=== PATIENT | female | born 1995 | race Caucasian/White ===

== ENCOUNTER 2017-05-31 00:33 | Emergency (ER) | payer OTHER, SELFPAY ==
[2017-05-31 01:21] LABS: Bilirubin Negative (Negative); Blood, Urine Large (Negative); Glucose, Urine (Dipstick) Negative (Negative); Ketone, Urine Negative (Negative); Nitrite Negative (Negative); Protein, Urine (Dipstick) Negative (Neg-Trace); Urobilinogen 0.2 mg/dL (0.2-1.0)
[2017-05-31 01:23] LABS: Bacteria/HPF Rare-Few HPF (None Seen); Hyaline Casts/LPF 0-3 HYALINE CAST LPF (0-3 Hyaline); WBC/HPF 0-3 HPF (0-3)
== END 2017-05-31 02:40 | disposition home or self-care (01) ==
LOC: ERS 00:33
DX: O20.0 Threatened abortion (principal); Z3A.15 15 weeks gestation of pregnancy; F41.9 Anxiety disorder, unspecified; F32.9 Major depressive disorder, single episode, unspecified
CPT/HCPCS: 36415; 81003; 81015; 84702; 99284

== ENCOUNTER 2017-12-04 17:04 | Emergency (ER) | payer OTHER ==
[2017-12-04 18:32] LABS: #Basophils 0.1 thou/uL (0.0-0.2); #Eosinphils 0.2 thou/uL (0.0-0.7); #Lymphocytes 2.8 thou/uL (1.20-3.40); #Monocytes 0.4 thou/uL (0.11-0.59); #Neutrophils 4.2 thou/uL (1.40-6.50); %Basophils 0.7 % (0.0-1.0); %Lymphocytes 36.4 % (21.0-51.0); %Monocytes 5.9 % (0.0-10.0); Mean Corpuscular HGB CONC 33.5 g/dL (32.0-36.0); Mean Corpuscular Hemoglobin 28.2 pg (27.0-31.0); Mean Platelet Volume 6.7 fL (7.4-10.4); Platelet Count 400 thou/uL (130-400); RBC Distribution Width 12.9 % (11.5-14.5); Red Blood Cell (RBC) Count 4.61 mill/uL (4.20-5.40); White Blood Cell (WBC) Count 7.6 thou/uL (4.8-10.8)
[2017-12-04 18:45] LABS: Bilirubin Negative (Negative); Blood, Urine Moderate (Negative); Clarity CLEAR (Clear); Glucose, Urine (Dipstick) Negative (Negative); Leukocyte Negative (Negative); Nitrite Negative (Negative); Protein, Urine (Dipstick) Negative (Neg-Trace); Specific Gravity, Urine 1.012 (1.002-1.036); Urobilinogen 0.2 mg/dL (0.2-1.0)
[2017-12-04 18:47] LABS: Bacteria/HPF None Seen HPF (None Seen); Hyaline Casts/LPF 0-3 HYALINE CAST LPF (0-3 Hyaline); RBC/HPF None Seen HPF (0-3); Squamous Epithelial 0-3 HPF (0-3); WBC/HPF 0-3 HPF (0-3)
[2017-12-04 18:50] LABS: Anion Gap 12 mmol/L (10-20); BUN (Urea Nitrogen) 12 mg/dL (7.0-18.7); Calc. Creatinine Clearance 0 mL/min (70-130); Calcium 9.3 mg/dL (7.8-10.44); Carbon Dioxide 23 mmol/L (22-29); Chloride 106 mmol/L (98-107); Estimated GFR-MDRD Greater than 90; Glucose 81 mg/dL (70-105); Potassium 4.2 mmol/L (3.5-5.1); Sodium 137 mmol/L (136-145)
[2017-12-04] MEDS ORDERED: Acetaminophen 500 MG TAB ONE (19:12)
--- NOTE | 2017-12-04 21:42 | ULT ---
PELVIC ULTRASOUND: 12/04/17 HISTORY: bleeding. Real time images of the pelvis were obtained transabdominally. These show a uterus measuring 6.1 x 8. 8 x 12.2 cm. Endometrium is thickened at 1.3 cm. It is of decreased echogenicity which would indicate some blood. I do not see any definite retained products of conception. The left ovary is felt to be visualized and normal in appearance. The right ovary is not seen. DOPPLER EVALUATION WITH SPECTRAL ANALYSIS: Normal flow is shown to the left ovary. IMPRESSION: 1. Enlarged uterus consistent with state with a thickened endometrium which would sug gest some blood products as it is of decreased echogenicity. 2. The right ovary is not identified. The left ovary appears unremarkable. POS: MARTINEZ
== END 2017-12-04 20:06 | disposition home or self-care (01) ==
LOC: ERS 17:04
DX: O72.2 Delayed and secondary postpartum hemorrhage (principal); F41.9 Anxiety disorder, unspecified; F32.9 Major depressive disorder, single episode, unspecified; Z79.899 Other long term (current) drug therapy
CPT/HCPCS: 36415; 51701; 76856; 80048; 81003; 81015; 85025; 93976; A4353

== ENCOUNTER 2019-10-03 15:04 | Emergency (ER) | payer OTHER ==
[2019-10-03 15:38] LABS: #Basophils 0.1 thou/uL (0.0-0.2); #Eosinphils 0.1 thou/uL (0.0-0.7); #Lymphocytes 1.8 thou/uL (1.20-3.40); #Monocytes 0.8 thou/uL (0.11-0.59); #Neutrophils 11.3 thou/uL (1.40-6.50); %Basophils 0.4 % (0.0-1.0); %Eosinophils 0.5 % (0.0-10.0); %Lymphocytes 12.8 % (21.0-51.0); %Monocytes 5.4 % (0.0-10.0); %Neutrophils 80.9 % (42.0-75.0); Hemoglobin 12.8 g/dL (12.0-16.0); Mean Corpuscular HGB CONC 34.3 g/dL (32.0-36.0); Mean Corpuscular Volume 84.5 fL (78.0-98.0); Platelet Count 405 thou/uL (130-400); RBC Distribution Width 12.1 % (11.5-14.5); Red Blood Cell (RBC) Count 4.42 mill/uL (4.20-5.40); White Blood Cell (WBC) Count 13.9 thou/uL (4.8-10.8)
[2019-10-03 15:59] LABS: ALT (SGPT) 11 U/L (8-55); AST (SGOT) 13 U/L (5-34); Albumin 4.7 g/dL (3.5-5.0); Alkaline Phosphatase 92 U/L (40-110); Anion Gap 12 mmol/L (10-20); BUN (Urea Nitrogen) 6 mg/dL (7.0-18.7); Bilirubin, Total 0.4 mg/dL (0.2-1.2); Calc. Creatinine Clearance 0 mL/min (70-130); Calcium 9.5 mg/dL (7.8-10.44); Carbon Dioxide 25 mmol/L (22-29); Chloride 103 mmol/L (98-107); Estimated GFR-MDRD Greater than 90; Globulin 3.7 g/dL (2.4-3.5); Glucose 97 mg/dL (70-105); Lipase 10 U/L (8-78); Potassium 4.1 mmol/L (3.5-5.1); Protein, Total 8.4 g/dL (6.0-8.3); Sodium 136 mmol/L (136-145)
[2019-10-03 16:00] LABS: Bilirubin Negative (Negative); Blood, Urine Negative (Negative); Clarity Clear (Clear); Glucose, Urine (Dipstick) Normal (Negative); Leukocyte Negative Leu/uL (Negative); Nitrite Negative (Negative); Protein, Urine (Dipstick) Negative (Neg-Trace); Urobilinogen Normal mg/dL (Less than 2)
[2019-10-03 16:04] LABS: Pregnancy Test - Urine (BHCG) Negative (Negative); Pregu Control Background? CLEAR/WHITE (CLR/WHITE); Pregu Control Bar Appear? YES (CONTROL BAR); Specific Gravity 1.023 (1.002-1.036)
[2019-10-03] MEDS ORDERED: Ketorolac Tromethamine 30 MG/ML VIAL ONE (16:35)
[2019-10-03] MEDS ORDERED: Ondansetron ODT 4 MG TAB ONE (16:36)
--- NOTE | 2019-10-03 17:51 | ULT ---
TRANSABDOMINAL TRANSVAGINAL PELVIC ULTRASOUND DATE:: 10/03/2019 4:20 PM CLINICAL HISTORY: Lower abdominal pain with history of negative . COMPARISON: Pelvic ultrasound dated December 04, 2017 TECHNIQUE: Grayscale, color Doppler and spectral Doppler images were obtained of the pelvis see a tra nsabdominal and transvaginal approach FINDINGS: UTERUS: Size: 7.7 x 5.6 x 3.7 cm Mass: None Cervix: Within normal limits Endometrial Thickness: 13 mm. OVARIES: Size: Right measures 1.9 x 2.4 x 3.9 cm; Left measures 2.4 x 1.3 x 2.7 cm Mass: There are bilateral ovarian cysts. The largest on the right ovary measures 1.3 cm. The largest in the left ovary measures 7 mm. Flow: Normal CUL-DE-SAC: Moderate free fluid IMPRESSION: 1. Nonspecific moderate free fluid. 2. Bilateral ovarian follicular cysts.
== END 2019-10-03 18:35 | disposition home or self-care (01) ==
LOC: ERS 15:04
DX: N83.02 Follicular cyst of left ovary (principal); N83.01 Follicular cyst of right ovary; F41.9 Anxiety disorder, unspecified; F32.9 Major depressive disorder, single episode, unspecified
CPT/HCPCS: 36415; 76856; 80053; 81003; 81025; 83690; 85025; 87081; 87430; 96372; J1885; Q0162

== ENCOUNTER 2023-06-11 13:16 | Emergency (ER) | payer OTHER, SELFPAY | END 2023-06-11 13:50 | disposition home or self-care (01) | LOC: ERS 13:16 | DX: L25.9 Unspecified contact dermatitis, unspecified cause (principal) | CPT/HCPCS: 99282 ==

== ENCOUNTER 2025-05-17 18:40 | Emergency (ER) | payer SELFPAY ==
[2025-05-17 19:24] LABS: Pregnancy Test - Urine (BHCG) Negative (Negative); Pregu Control Background? CLEAR/WHITE (CLR/WHITE); Pregu Control Bar Appear? YES (CONTROL BAR)
[2025-05-17 19:30] LABS: CAUTI Indications for Culture Dysuria,urgency,freq; Glucose, Urine (Dipstick) Normal (Negative); Leukocyte 250 Leu/uL (Negative); Protein, Urine (Dipstick) 30 mg/dL (Neg-Trace); Specific Gravity, Urine 1.038 (1.002-1.036); WBC/HPF Greater than 50 HPF (0-3)
[2025-05-17 19:31] LABS: Bacteria/HPF 1+ HPF (None Seen)
[2025-05-17 19:33] LABS: Urine Culture Reflex Yes Yes
[2025-05-17] MEDS ORDERED: cefTRIAXone (ROCEPHIN) 1 GM VIAL ONE ×2 (20:02→20:09)
== END 2025-05-17 20:27 | disposition home or self-care (01) ==
LOC: ERS 18:40
DX: N39.0 Urinary tract infection, site not specified (principal)
CPT/HCPCS: 81001; 81025; 87077; 87086; 96372; 99284; J0696; Q0162

== ENCOUNTER 2025-07-14 15:02 | Emergency (ER) | payer SELFPAY ==
[2025-07-14 15:54] LABS: Bacteria/HPF None Seen HPF (None Seen); CAUTI Indications for Culture Dysuria,urgency,freq; Glucose, Urine (Dipstick) Normal (Negative); Leukocyte Negative Leu/uL (Negative); Pregnancy Test - Urine (BHCG) Negative (Negative); Pregu Control Background? CLEAR/WHITE (CLR/WHITE); Pregu Control Bar Appear? YES (CONTROL BAR); Protein, Urine (Dipstick) Negative (Neg-Trace); RBC/HPF None Seen HPF (0-3); Specific Gravity, Urine 1.023 (1.002-1.036); Urine Culture Reflex No No; WBC/HPF None Seen HPF (0-3)
== END 2025-07-14 15:30 | disposition home or self-care (01) ==
LOC: ERS 15:02
DX: N30.00 Acute cystitis without hematuria (principal)
CPT/HCPCS: 81001; 81025; 87086; 99284